=== PATIENT | male | born 1955 ===

== ENCOUNTER 2020-08-08 22:09 | Inpatient (IN) | payer MEDICARE, MEDICAID ==
[~2020-08-08] VITALS: Ht 172.7 cm; Wt 115.5 kg
[2020-08-08] MEDS: ALBUTEROL/IPRATROPIUM 2.5MG/0.5MG, 3 ML NPPB ONE ×2 (22:10→22:30)
--- NOTE | 2020-08-08 22:15 | NUR ---
THIS IS A 65Y M BIB EMS FROM [facility] PT VISITING FROM [place], PT STS WAS WALKING [facility]CROSS [facility] AND FELT SOB AND PALPATATIONS. PT DOES NOT USE HOME O2 BUT RA SAT FOR EMS WAS 86%. PT HAS HX OF COPD BUT STS HE NORMALLY IS AROUND 92% PT USES A CPAP AT NIGHT. PT CONNECTED TO ALL MONITORING VSS NADN AT THIS TIME
[2020-08-08] MEDS ORDERED: ALBUTEROL/IPRATROPIUM 2.5MG/0.5MG, 3 ML ONE (22:22)
[2020-08-08 22:40] LABS: BASOPHILS % (AUTO) 1 % (0-1); EOSINOPHILS % (AUTO) 2 % (1-7); LYMPHOCYTES % (AUTO) 23 % (22-44); MEAN CORPUSCULAR HEMOGLOBIN 28.3 pg (27.5-34.5); MEAN PLATELET VOLUME 7.7 fL (7.4-10.4); MONOCYTES % (AUTO) 8 % (2-9); NEUTROPHILS % (AUTO) 67 % (42-75); PLATELET COUNT 210 x10^3/uL (130-400); RED BLOOD COUNT 4.96 x10^6/uL (4.38-5.82); RED CELL DISTRIBUTION WIDTH 14.8 % (9.4-14.8)
[2020-08-08] MEDS ORDERED: ACETAMINOPHEN 325 MG TABLET ONE (22:41)
[2020-08-08 22:52] LABS: ALBUMIN 3.9 g/dL (3.4-5.0); ANION GAP 2 mmol/L (5-15); CALCIUM 9.4 mg/dL (8.5-10.1); CHLORIDE 107 mmol/L (98-107); CREATININE 0.94 mg/dL (0.7-1.3)
--- NOTE | 2020-08-08 22:54 | NUR ---
cherry [id number]
--- NOTE | 2020-08-08 22:55 | NUR ---
JULISA RITTER UPDATED AT PT REQUEST
[2020-08-08 22:56] LABS: TROPONIN I < 0.015 ng/mL (0.000-0.045)
[2020-08-08] MEDS ORDERED: ACETAMINOPHEN 325 MG TABLET PO ONE (23:00)
--- NOTE | 2020-08-08 23:03 | NUR ---
PT GIVEN TYLENOL AT THIS TIME FOR HEADACHE
[2020-08-08 23:04] LABS: MD NO
--- NOTE | 2020-08-08 23:06 | NUR ---
PT STS HE FEELS BETTER AFTER BREATHING TX HOWEVER RA SAT 88%
--- NOTE | 2020-08-08 23:07 | NUR ---
JULISA (FRIEND) [phone] WILL COME GET PATIENT IF HE DC'S [place]
--- NOTE | 2020-08-08 23:37 | NUR ---
ATTEMPTED AMBULATION PER DR ESPANA, PT RA SAT DURING WALKING 70%
[2020-08-09] MEDS ORDERED: SODIUM CHLORIDE FLUSH 10ML SYR IVF ONE
[2020-08-09] MEDS ORDERED: methylPREDNISolone SOD SUCC 125 MG/2 ML IVPush ONE
[2020-08-09] MEDS ORDERED: morphine SULFATE 10 MG/ML, 1ML IVPush PRN (00:30)
[2020-08-09] MEDS ORDERED: DOCUSATE 100 MG CAPSULE PO PRN (00:30)
[2020-08-09] MEDS ORDERED: SODIUM CHLORIDE FLUSH 10ML SYR IVF PRN (00:30)
[2020-08-09] MEDS ORDERED: ACETAMINOPHEN 325 MG TABLET PO PRN (00:30)
[2020-08-09] MEDS ORDERED: ALBUTEROL/IPRATROPIUM 2.5MG/0.5MG, 3 ML NPPB SCH (00:30)
[2020-08-09] MEDS ORDERED: ONDANSETRON 2MG/ML, 2ML IVPush PRN (00:30)
[2020-08-09] MEDS ORDERED: BISACODYL 10 MG SUPP PR PRN (00:30)
[2020-08-09] MEDS ORDERED: ENOXAPARIN 40 MG/0.4 ML SQ SCH (00:30)
[2020-08-09] MEDS ORDERED: PROMETHAZINE 25 MG/ML, 1ML IM PRN (00:30)
[2020-08-09] MEDS ORDERED: LABETALOL 5MG/ML, 20ML IVPush PRN (00:30)
[2020-08-09] MEDS ORDERED: POLYETHYLENE GLYCOL 17 GM PACKET PO PRN (00:30)
[2020-08-09] MEDS ORDERED: ONDANSETRON ODT 4 MG PO PRN (00:30)
[2020-08-09] MEDS ORDERED: TRAZODONE PO (00:36)
[2020-08-09] MEDS ORDERED: [UNRECOGNIZED DRUG - OTHER] (00:36)
[2020-08-09] MEDS ORDERED: ATOR20TA37 PO (00:36)
[2020-08-09] MEDS ORDERED: QUET25TA7 PO (00:36)
--- NOTE | 2020-08-09 00:43 | NUR ---
REPORT TO MG RICHEY PT READY FOR TRANSPORT TO FLOOR AT THIS TIME
[2020-08-09] MEDS ORDERED: ALBUTEROL HFA 90 MCG/SPRAY INH PRN (01:00)
[2020-08-09 01:05] VITALS: BP 139/78
[2020-08-09 01:17] VITALS: BP 139/78
[2020-08-09] MEDS: methylPREDNISolone SOD SUCC 125 MG/2 ML IVPush SCH ×3 (01:46→13:53)
[2020-08-09] MEDS ORDERED: ZIPR80CA3 PO (02:12)
[2020-08-09] MEDS ORDERED: QUET25TA5 PO (02:12)
[2020-08-09] MEDS ORDERED: ASPI-430 PO (02:12)
[2020-08-09] MEDS ORDERED: QUETIAPINE 25MG TABLET PO SCH (02:30)
[2020-08-09 05:45] LABS: ALANINE AMINOTRANSFERASE 47 U/L (12-78); ALBUMIN 3.8 g/dL (3.4-5.0); ANION GAP 2 mmol/L (5-15); BASOPHILS % (AUTO) 1 % (0-1); CALCIUM 9.4 mg/dL (8.5-10.1); CHLORIDE 109 mmol/L (98-107); CREATININE 0.89 mg/dL (0.7-1.3); EOSINOPHILS % (AUTO) 0 % (1-7); LYMPHOCYTES % (AUTO) 13 % (22-44); MEAN CORPUSCULAR HEMOGLOBIN 28.3 pg (27.5-34.5); MEAN CORPUSCULAR HGB CONC 32.5 g/dL (33.2-36.2); MEAN PLATELET VOLUME 7.9 fL (7.4-10.4); MONOCYTES % (AUTO) 2 % (2-9); NEUTROPHILS % (AUTO) 84 % (42-75); PLATELET COUNT 200 x10^3/uL (130-400); RED BLOOD COUNT 4.91 x10^6/uL (4.38-5.82); RED CELL DISTRIBUTION WIDTH 14.7 % (9.4-14.8)
[2020-08-09 05:53] LABS: ALKALINE PHOSPHATASE 63 U/L (45-117); BILIRUBIN,TOTAL 0.3 mg/dL (0.2-1.0); CHOL/HDL RATIO 2.8; CHOLESTEROL, TOTAL 149 mg/dL (140-239); HDL CHOL % 36 % (26-37); HDL CHOLESTEROL (DIRECT) 54 mg/dL (40-60); LDL CHOLESTEROL,CALCULATED 69 mg/dL (54-169); LDL/HDL RATIO 1.3 (0.5-3.0); TOTAL PROTEIN 7.8 g/dL (6.4-8.2); TRIGLYCERIDES 128 mg/dL (50-200); VLDL CHOLESTEROL 26 mg/dL (0-25)
[2020-08-09 06:04] LABS: MD NO
[2020-08-09] MEDS: ALBUTEROL-IPRATROPIUM MDI INH INH SCH ×3 (07:00→15:00)
[2020-08-09 07:06] VITALS: BP 151/74
[2020-08-09] MEDS ORDERED: ASPIRIN 81 MG TABLET CHEW PO SCH ×2 (09:00)
[2020-08-09] MEDS ORDERED: AZITHROMYCIN 500 MG TABLET PO SCH (09:00)
[2020-08-09] MEDS ORDERED: FLUTICASONE/VILANTEROL 200-25MCG/INH INH SCH (09:00)
[2020-08-09] MEDS ORDERED: UMEC1DIS INH (12:11)
[2020-08-09] MEDS ORDERED: METH4TAB2 PO (12:11)
[2020-08-09] MEDS ORDERED: ALBU18HF INH (12:11)
[2020-08-09] MEDS ORDERED: AZIT500T10 PO (12:11)
[2020-08-09 13:25] VITALS: BP 149/78
== END 2020-08-09 16:28 | disposition home or self-care (01) | DRG 189 ==
LOC: ED 08-09 → EDIP 08-09 01:07 → 3N 08-09 01:09 → DCLOUNGE 08-09 16:23
PROVIDERS: ADMIT Internal Medicine; ATTEND Hospitalist
DX: J96.01 Acute respiratory failure with hypoxia (principal); F20.0 Paranoid schizophrenia; J44.1 Chronic obstructive pulmonary disease with (acute) exacerbation; J98.11 Atelectasis; E66.9 Obesity, unspecified; Z87.891 Personal history of nicotine dependence; Z93.3 Colostomy status; Z68.38 Body mass index [BMI] 38.0-38.9, adult; Z91.048 Other nonmedicinal substance allergy status
CPT/HCPCS: 36415; 71045; 80048; 80053; 80061; 82040; 83036; 83735; 84443; 84484; 85025; 93005; 94640; 94660; 99285; J1650; J2930